=== PATIENT | female | born 1965 | race American Indian/Alaskan Native ===

== ENCOUNTER 2017-05-27 09:30 | Outpatient (CLI) | payer OTHER ==
[2017-05-27 10:43] LABS: Blood Urea Nitrogen 16 mg/dL (7-17)
--- NOTE | 2017-05-28 07:27 | Cat Scan Report ---
CT ABDOMEN PELVIS WITH CONTRAST: HISTORY: abdominal pain, hemorrhage of the anus and rectum. COMPARISON: none. TECHNIQUE: Helical CT in 1.25mm intervals following IV contrast. Sagittal and coronal reconstructions. FINDINGS: Lung bases: Normal. Liver: Normal. 5 mm right hepatic lobe cyst is noted. Biliary system: Normal. Pancreas: Normal. Spleen: Normal. Kidneys/ureters/bladder: There is moderate multifocal cortical scarring in the right kidney suggesting previous episodes of pyelonephritis. 2 or 3 punctate nonobstructing calyceal stones are also identified within the right kidney. Few scattered renal cysts are noted. A 1.5 cm left renal cyst is slightly complex suggesting hemorrhagic change. Adrenal glands: Normal. Aorta: Normal. Intestines: No evidence for focal bowel wall thickening or obstruction. No diverticulosis. The rectum is poorly distended but no obvious rectal mass or ulceration. The anal region is unremarkable. Appendix: Not confidently identified, correlate with surgical history. Pelvic viscera: Normal. Ascites: None. Adenopathy: None. Musculoskeletal: Mild thoracolumbar spondylosis is noted. No evidence for fracture or bone lesion. IMPRESSION: No acute process is identified in the abdomen or pelvis. Multifocal cortical scarring in the right kidney. Nonobstructing punctate stones in the right kidney. Scattered bilateral renal cysts. Tiny right hepatic lobe cyst. No discrete abnormality is identified in the rectum or anus Assumed appendectomy.
== END 2017-05-27 09:31 | disposition home or self-care (01) ==
LOC: CT 09:30 → EEVIPCON 09:30 → CT 09:31
PROVIDERS: ATTEND Nurse Practitioner
DX: N20.0 Calculus of kidney (principal); N28.1 Cyst of kidney, acquired; K62.5 Hemorrhage of anus and rectum; K76.89 Other specified diseases of liver; N28.89 Other specified disorders of kidney and ureter; M47.894 Other spondylosis, thoracic region
CPT/HCPCS: 36415; 74177; 82565; 84520; Q9967

== ENCOUNTER 2019-05-21 10:43 | Outpatient (CLI) | payer BC ==
[2019-05-21 11:30] LABS: Basophils # (Auto) 0.1 K/mm3 (0.0-0.1); Basophils % (Auto) 1.2 % (0.0-1.8); Eosinophils # (Auto) 0.2 K/mm3 (0.0-0.4); Eosinophils % (Auto) 4.9 % (0.0-4.3); Hematocrit 38.7 % (30.3-42.9); Hemoglobin 12.7 gm/dl (10.1-14.3); Lymphocytes # (Auto) 2.1 K/mm3 (1.2-5.4); Lymphocytes % (Auto) 41.8 % (13.4-35.0); Mean Corpuscular HGB Conc 33 % (30-34); Mean Corpuscular Volume 81 fl (79-97); Monocytes # (Auto) 0.5 K/mm3 (0.0-0.8); Monocytes % (Auto) 10.2 % (0.0-7.3); Platelet Count 373 K/mm3 (140-440); Red Blood Count 4.78 M/mm3 (3.65-5.03); Red Cell Distribution Width 14.8 % (13.2-15.2)
[2019-05-21 11:31] LABS: Creatinine,Urine 50.1 mg/dL (0.1-20.0)
[2019-05-21 11:32] LABS: Bilirubin,Urine NEG (Negative); Blood,Urine NEG (Negative); Color,Urine Straw (Yellow); Urobilinogen,Urine < 2.0 mg/dL (<2.0)
[2019-05-21 11:46] LABS: Microalbumin/Creatinine Ratio 1091.8 ug/mg
[2019-05-21 11:52] LABS: Alanine Aminotransferase 19 units/L (7-56); Albumin 4.8 g/dL (3.9-5); BUN/Creatinine Ratio 16; Blood Urea Nitrogen 13 mg/dL (7-17); Chol/HDL Ratio 2.72 %; HDL Cholesterol 79 mg/dL (40-59); Hemolysis Index 12; LDL Cholesterol,Direct 137 mg/dL (50-130)
[2019-05-26 13:45] LABS: Vitamin D, 25-OH, D2 <4 ng/mL
== END 2019-05-21 10:44 | disposition home or self-care (01) ==
LOC: LAB 10:43
PROVIDERS: ATTEND Internal Medicine
DX: E78.5 Hyperlipidemia, unspecified (principal); E66.9 Obesity, unspecified; N20.0 Calculus of kidney; E11.40 Type 2 diabetes mellitus with diabetic neuropathy, unspecified
CPT/HCPCS: 36415; 80053; 80061; 81001; 82043; 82306; 82607; 83036; 83970; 84100; 84443; 85025

== ENCOUNTER 2019-05-21 12:27 | Outpatient (CLI) | payer BC ==
--- NOTE | 2019-05-24 14:28 | Mammography Report ---
DIGITAL SCREENING MAMMOGRAM WITH CAD, 05/21/2019 INDICATION: Routine screening mammography. TECHNIQUE: Digital bilateral 2D mammography was obtained in the craniocaudal and mediolateral obliq ue projections. This examination was interpreted with the benefit of Computer-Aided Detection analysi s. COMPARISON: 03/23/2018 FINDINGS: Breast Density: The breasts are heterogeneously dense, which may obscure small masses. There is no evidence of dominant mass, suspicious calcifications or architectural distortion in eithe r breast. Bilateral scattered benign calcifications. IMPRESSION: No mammographic evidence of malignancy. Follow up recommendation: Routine yearly BI-RADS Category 2: Benign. A "normal" or negative report should not discourage follow up or biopsy of a clinically significant f inding. A written summary of these findings will be mailed to the patient. The patient will be entered into a mammography reporting system which will generate a reminder letter for the patient's next appointmen t at the appropriate interval. The [employer] recommends yearly mammograms starting at age 40 and continuing as l john as a woman is in good health. Breast MRI is recommended for women with an approximate 20-25% or greater lifetime risk of breast cancer, including women with a strong family history of breast or ova linda cancer or who have been treated for Hodgkin's disease. Signer Name: Andre Eckert MD Signed: 05/24/2019 2:24 PM Workstation Name: [id number]
== END 2019-05-21 12:28 | disposition home or self-care (01) ==
LOC: MAMMO 12:27
PROVIDERS: ATTEND Internal Medicine
DX: Z12.31 Encounter for screening mammogram for malignant neoplasm of breast (principal)
CPT/HCPCS: 77067

== ENCOUNTER 2019-06-22 09:13 | Outpatient (CLI) | payer BC ==
[2019-06-22 13:27] LABS: Creatinine,Urine 104.5 mg/dL (0.1-20.0); Microalbumin/Creatinine Ratio 133.9 ug/mg; Protein/Creatinine Ratio,Urine 0.3
[2019-06-22 13:29] LABS: BUN/Creatinine Ratio 22; Blood Urea Nitrogen 22 mg/dL (7-17); Calcium 10.2 mg/dL (8.4-10.2); Hemolysis Index 6
== END 2019-06-22 09:14 | disposition home or self-care (01) ==
LOC: LAB 09:13
PROVIDERS: ATTEND Internal Medicine
DX: I10 Essential (primary) hypertension (principal); E11.9 Type 2 diabetes mellitus without complications
CPT/HCPCS: 36415; 80048; 82043; 82570; 84100; 84156

== ENCOUNTER 2020-08-11 09:29 | Outpatient (CLI) | payer BC ==
--- NOTE | 2020-08-11 11:46 | Mammography Report ---
DIGITAL SCREENING MAMMOGRAM , 08/11/2020 INDICATION: Routine screening mammography. TECHNIQUE: Digital bilateral 2D mammography was obtained in the craniocaudal and mediolateral obliq ue projections. COMPARISON: 05/21/2019. FINDINGS: Breast Density: The breasts are heterogeneously dense, which may obscure small masses. There is no evidence of dominant mass, suspicious calcifications or architectural distortion in eithe r breast. IMPRESSION: Follow up recommendation: Routine yearly BI-RADS Category 1: Negative. A "normal" or negative report should not discourage follow up or biopsy of a clinically significant f inding. A written summary of these findings will be mailed to the patient. The patient will be entered into a mammography reporting system which will generate a reminder letter for the patient's next appointmen t at the appropriate interval. The [employer] recommends yearly mammograms starting at age 40 and continuing as l john as a woman is in good health. Breast MRI is recommended for women with an approximate 20-25% or greater lifetime risk of breast cancer, including women with a strong family history of breast or ova linda cancer or who have been treated for Hodgkin's disease. Signer Name: Maurisio Jay MD Signed: 08/11/2020 11:42 AM Workstation Name: [id number]
== END 2020-08-11 09:30 | disposition home or self-care (01) ==
LOC: MAMMO 09:29
PROVIDERS: ATTEND Obstetrics & Gynecology
DX: Z12.31 Encounter for screening mammogram for malignant neoplasm of breast (principal); N64.89 Other specified disorders of breast
CPT/HCPCS: 77067

== ENCOUNTER 2021-09-21 09:21 | Outpatient (CLI) | payer BC, OTHER ==
--- NOTE | 2021-09-25 12:28 | Mammography Report ---
DIGITAL SCREENING MAMMOGRAM WITH CAD, 09/21/2021 CLINICAL INFORMATION / INDICATION: Routine screening mammography. TECHNIQUE: Digital bilateral 2D mammography was obtained in the craniocaudal and mediolateral obliqu e projections. This examination was interpreted with the benefit of Computer-Aided Detection analysis . COMPARISON: 08/11/2020, 05/21/2019 FINDINGS: Breast Density: There are scattered areas of fibroglandular density. No dominant mass, suspicious calcifications, or architectural distortion in either breast. Bilateral benign-appearing calcifications are unchanged. IMPRESSION: No mammographic evidence of malignancy. Follow up recommendation: Routine yearly BI-RADS Category 2: BENIGN. A "normal" or negative report should not discourage follow up or biopsy of a clinically significant f inding. A written summary of these findings will be mailed to the patient. The patient will be entered into a mammography reporting system which will generate a reminder letter for the patient's next appointmen t at the appropriate interval. The [employer] recommends yearly mammograms starting at age 40 and continuing as l john as a woman is in good health. Breast MRI is recommended for women with an approximate 20-25% or greater lifetime risk of breast cancer, including women with a strong family history of breast or ova linda cancer or who have been treated for Hodgkin's disease. Signer Name: Chepe Kwon MD Signed: 09/25/2021 12:24 PM Workstation Name: [id number]
== END 2021-09-21 09:22 | disposition home or self-care (01) ==
LOC: MAMMO 09:21
PROVIDERS: ATTEND Obstetrics & Gynecology
DX: Z12.31 Encounter for screening mammogram for malignant neoplasm of breast (principal)
CPT/HCPCS: 77067

== ENCOUNTER 2022-01-01 08:55 | Outpatient (CLI) | payer OTHER ==
[2022-01-01 12:34] LABS: Basophils % (Auto) 1.2 % (0.0-1.8); Eosinophils # (Auto) 0.1 K/mm3 (0.0-0.4); Eosinophils % (Auto) 2.8 % (0.0-4.3); Hematocrit 41.8 % (30.3-42.9); Hemoglobin 14.1 gm/dl (10.1-14.3); Lymphocytes # (Auto) 1.2 K/mm3 (1.2-5.4); Lymphocytes % (Auto) 28.7 % (13.4-35.0); Mean Corpuscular HGB Conc 34 % (30-34); Mean Corpuscular Volume 87 fl (79-97); Monocytes # (Auto) 0.4 K/mm3 (0.0-0.8); Monocytes % (Auto) 10.3 % (0.0-7.3); Platelet Count 280 K/mm3 (140-440); Red Cell Distribution Width 12.9 % (13.2-15.2)
[2022-01-01 12:56] LABS: Alanine Aminotransferase 18 units/L (7-56); Albumin 4.8 g/dL (3.9-5); BUN/Creatinine Ratio 16; Blood Urea Nitrogen 18 mg/dL (7-17); Calcium 10.4 mg/dL (8.4-10.2); Chol/HDL Ratio 2.19 %; HDL Cholesterol 66 mg/dL (40-59); Hemolysis Index 12; LDL Cholesterol,Direct 73 mg/dL (50-130)
[2022-01-01 13:01] LABS: Creatinine,Urine 81.2 mg/dL (0.1-20.0); Microalbumin/Creatinine Ratio 190.8 ug/mg
== END 2022-01-01 08:56 | disposition home or self-care (01) ==
LOC: LABHHL 08:55
PROVIDERS: ATTEND Internal Medicine
DX: Z00.00 Encounter for general adult medical examination without abnormal findings (principal); E78.5 Hyperlipidemia, unspecified; E11.9 Type 2 diabetes mellitus without complications; E55.9 Vitamin D deficiency, unspecified; I10 Essential (primary) hypertension; M06.9 Rheumatoid arthritis, unspecified
CPT/HCPCS: 36415; 80053; 80061; 82043; 82306; 83036; 84443; 85025